=== PATIENT | male | born 1960 | race Caucasian/White ===

== ENCOUNTER 2022-03-08 15:41 | Emergency (ER) | payer OTHER ==
[2022-03-08 18:07] LABS: BASOPHIL 0.3 % (0-2); EOSINOPHIL 0.1 % (0-5); HCT 43.1 % (42.0-52.0); HGB 14.1 g/dl (13.2-18.0); LYMPHOCYTE 8.5 % (15-48); MCH 30.7 pg (25.0-31.0); MCHC 32.7 g/dL (32.0-36.0); MCV 93.9 fL (78.0-100.0); MONOCYTE 4.3 % (0-12); MPV 9.1 fL (6.0-9.5); NRBC 0; PLT 447 K/uL (150-400); RBC 4.59 M/uL (4.70-6.00); RDW 12.3 % (11.5-14.0); WBC 14.3 K/uL (4.0-10.5)
[2022-03-08 18:24] LABS: BILIRUBIN - TOTAL 0.2 mg/dL (0.2-1.0); BUN/CREAT RATIO (CALC) 10.6 RATIO; CREATININE 1.04 mg/dL (0.67-1.17); GLOBULIN (CALCULATION) 3.5 g/dL; POTASSIUM 4.5 mmol/L (3.5-5.1); TOTAL PROTEIN 7.5 g/dL (6.4-8.2)
[2022-03-08 18:25] LABS: BILIRUBIN NEGATIVE (NEGATIVE); BLOOD 3+ Ery/uL (NEGATIVE); COLOR YELLOW (YELLOW); GLUCOSE (U) 1+ mg/dL (NORMAL); LEUKOCYTES NEGATIVE Leu/uL (NEGATIVE); NITRITE NEGATIVE (NEGATIVE); PROTEIN TRACE (LOW) mg/dL (NEGATIVE); SPECIFIC GRAVITY >=1.030 (1.001-1.030); UROBILINOGEN 0.2 mg/dL (0.2-1.0)
[2022-03-08 18:28] LABS: LACTIC ACID 3.5 mmol/L (0.4-1.9)
[2022-03-08 18:39] LABS: CLARITY SLIGHTLY HAZY (CLEAR)
[2022-03-08 18:42] LABS: BACTERIA TRACE; URINARY RBC 20-50; URINARY WBC RARE
[2022-03-08 18:43] LABS: MUCOUS TRACE
[2022-03-08 18:44] LABS: TRANSITIONAL EPITHELIAL CELLS RARE
[2022-03-08 20:21] LABS: INFLUENZA A NAA NEGATIVE (NEGATIVE)
[2022-03-08 20:26] LABS: CORONAVIRUS 2019 SARS-COV-2 POSITIVE (NEGATIVE)
[2022-03-08] MEDS ORDERED: FLOMAX0.4 MG PO (20:46)
[2022-03-08] MEDS ORDERED: NORCO 5-325 TA1 EACH PO (20:46)
[2022-03-08] MEDS ORDERED: ONDANSETRON HCL4 MG PO (20:46)
== END 2022-03-08 21:39 | disposition home or self-care (01) ==
LOC: FER 15:41
PROVIDERS: Nurse Practitioner Family
DX: N13.2 Hydronephrosis with renal and ureteral calculous obstruction (principal); U07.1 COVID-19; I10 Essential (primary) hypertension; E11.9 Type 2 diabetes mellitus without complications; Z79.899 Other long term (current) drug therapy; Z79.84 Long term (current) use of oral hypoglycemic drugs; Z28.310 Unvaccinated for COVID-19
CPT/HCPCS: 36415; 80053; 81001; 83605; 84145; 85025; 87040; J1885; J2270; J2405; J2543; J7030; Q9967; U0002